=== PATIENT | male | born 1940 | race African-American/Black ===

== ENCOUNTER 2017-10-28 16:46 | Inpatient (IN) | payer OTHER ==
[~2017-10-28] VITALS: Ht 167.6 cm; Wt 89.5 kg
[2017-10-28] MEDS ORDERED: ONDANSETRON 2MG/ML, 2ML ONE (17:59)
[2017-10-28] MEDS ORDERED: ONDANSETRON 2MG/ML, 2ML IVPush ONE (18:00)
[2017-10-28] MEDS ORDERED: DIPHENHYDRAMINE 50 MG/ML, 1ML ONE (18:00)
[2017-10-28] MEDS ORDERED: METOPROLOL 1 MG/ML, 5ML ONE (18:00)
[2017-10-28] MEDS ORDERED: DIPHENHYDRAMINE 50 MG/ML, 1ML IVPush ONE (18:00)
[2017-10-28] MEDS ORDERED: METOPROLOL 1 MG/ML, 5ML IVPush PRN (18:00)
[2017-10-28] MEDS ORDERED: SODIUM CHLORIDE FLUSH 10ML SYR IVF ONE (18:00)
[2017-10-28] MEDS ORDERED: MORPHINE SULFATE 4 MG/ML, 1ML ONE (18:06)
[2017-10-28 18:13] LABS: INTERNATIONAL NORMALIZED RATIO 0.97 (0.93-1.1)
[2017-10-28 18:14] LABS: BASOPHILS # (AUTO) 0.18 x10^3/uL (0-0.1); BASOPHILS % (AUTO) 3 % (0-1); EOSINOPHILS # (AUTO) 0.17 x10^3/uL (0-0.4); EOSINOPHILS % (AUTO) 3 % (1-7); LYMPHOCYTES # (AUTO) 1.54 x10^3/uL (1-3.4); LYMPHOCYTES % (AUTO) 27 % (22-44); MD SCAN; MEAN CORPUSCULAR HEMOGLOBIN 26.9 pg (27.5-34.5); MEAN CORPUSCULAR HGB CONC 33.1 g/dL (33.2-36.2); MEAN CORPUSCULAR VOLUME 81.4 fL (81-97); MEAN PLATELET VOLUME 8.4 fL (7.4-10.4); MONOCYTES # (AUTO) 0.53 x10^3/uL (0.2-0.8); MONOCYTES % (AUTO) 9 % (2-9); NEUTROPHILS # (AUTO) 3.28 x10^3/uL (1.8-6.8); NEUTROPHILS % (AUTO) 58 % (42-75); PLATELET COUNT 263 x10^3/uL (130-400); RED CELL DISTRIBUTION WIDTH 16.4 % (9.4-14.8)
[2017-10-28 18:17] LABS: ALANINE AMINOTRANSFERASE 28 U/L (12-78); ALBUMIN 3.2 g/dL (3.4-5.0); ANION GAP 5 mmol/L (5-15); CALCIUM 9.4 mg/dL (8.5-10.1); CHLORIDE 111 mmol/L (98-107); CREATININE 1.26 mg/dL (0.7-1.3)
[2017-10-28 18:21] LABS: ALKALINE PHOSPHATASE 102 U/L (45-117); BILIRUBIN,TOTAL 0.4 mg/dL (0.2-1.0); TOTAL PROTEIN 6.5 g/dL (6.4-8.2)
[2017-10-28] MEDS ORDERED: HYDROmorphone 2 MG/ML, 1ML ONE (18:49)
[2017-10-28] MEDS ORDERED: ASPI-650 PO (19:00)
[2017-10-28] MEDS ORDERED: HYDROmorphone 1 MG/ML, 1ML IV ONE (19:00)
[2017-10-28] MEDS ORDERED: SODIUM CHLORIDE 0.9% 1,000 ML IV SCH (19:28)
[2017-10-28] MEDS ORDERED: ONDANSETRON 2MG/ML, 2ML IVPush PRN (19:30)
[2017-10-28] MEDS ORDERED: ENOXAPARIN 40 MG/0.4 ML SQ SCH (19:30)
[2017-10-28] MEDS ORDERED: POLYETHYLENE GLYCOL 17 GM PACKET PO PRN (19:30)
[2017-10-28] MEDS ORDERED: hydrALAzine 20 MG/ML, 1ML IVPush PRN (19:30)
[2017-10-28] MEDS ORDERED: TRAZODONE 50MG TABLET PO PRN (19:30)
[2017-10-28] MEDS ORDERED: ACETAMINOPHEN 325 MG TABLET PO PRN (19:30)
[2017-10-28 20:16] LABS: TROPONIN I < 0.015 ng/mL (0.000-0.045)
[2017-10-28 21:02] VITALS: BP 145/90
[2017-10-28] MEDS: morphine SULFATE 10 MG/ML, 1ML IVPush PRN ×2 (21:11→21:57)
[2017-10-28 21:56] VITALS: BP 143/94
[2017-10-29] MEDS ORDERED: ASPIRIN 325 MG TABLET EC PO SCH (06:00)
== END 2017-10-28 22:15 | disposition left against medical advice (07) | DRG 313 ==
LOC: ED 18:08 → EDIP 19:03 → SUATTDRO 19:28 → 5SO 20:04
PROVIDERS: ADMIT Hospitalist; ATTEND Hospitalist
DX: R07.9 Chest pain, unspecified (principal); E78.5 Hyperlipidemia, unspecified; F17.210 Nicotine dependence, cigarettes, uncomplicated; I10 Essential (primary) hypertension; I25.10 Atherosclerotic heart disease of native coronary artery without angina pectoris; I25.2 Old myocardial infarction; Z53.21 Procedure and treatment not carried out due to patient leaving prior to being seen by health care provider; Z79.82 Long term (current) use of aspirin; Z79.899 Other long term (current) drug therapy; Z82.49 Family history of ischemic heart disease and other diseases of the circulatory system; Z86.711 Personal history of pulmonary embolism; Z95.5 Presence of coronary angioplasty implant and graft
CPT/HCPCS: 36415; 71045; 80053; 83690; 83880; 84484; 85025; 85379; 85610; 85730; 93005; J1170; J2405; J1200; J2270